=== PATIENT | male | born 1970 ===

== ENCOUNTER 2018-03-08 09:23 | Emergency (ER) | payer OTHER ==
--- OUTSIDE RECORDS SUMMARY | 2018-03-08 09:30 | XMS REPORT ---
:1970 External Reference #:[id number] Author Organization [employer] Address [address] [place] [address] Phone [phone] Care Team Providers Name Role Phone Cristi Kyle M.D. Primary Care Physician Unavailable Payers Type Date Identification Numbers Payment Provider Subscriber Commercial Policy Number: [id number] [employer] Ppo/Pos/Epo/Nap Gayla Romano PayID: [id number] [address] [place] [address] Problems Date Description Provider Status Onset: 01/17/2018 Myopia Raine Rizo O.D. Active Onset: 01/17/2018 Presbyopia Raine Rizo O.D. Active Onset: 01/17/2018 Regular astigmatism Raine Rizo O.D. Active Family History Date Family Member(s) Problem(s) Comments Father No Current Problems Mother No Current Problems Social History Type Date Description Comments Marital Status Legal Status: Occupation [employer] Work Status Full-Time Employment ETOH Use Denies alcohol use Smoking Patient has never smoked Daily Caffeine Does Not Consume Caffeine Allergies, Adverse Reactions, Alerts Date Description Reaction Status Severity Comments 01/17/2018 NKDA active Medications Medication Date Status Form Strength Qnty SIG Indications Ordering Provider No Active 01/17/2018 Active Unknown Medications Results Description No Information Procedures Date CPT Code Description Status 01/17/2018 23148 Determination Of Refractive State Completed 01/17/2018 84160 New Patient Comprehensive Exam Completed Plan of Care 01/17/2018 - Raine Rizo O.D.H52.13 Myopia, bilateralComments:Smoking can increase the risk of developing or worsening any eye related disease, as well as affect your overall health. If you are a smoker, we strongly recommend that you quit.If you are not a smoker, we strongly recommend that you do not start. You have Myopia, or near sightedness. I have given you a prescription for glasses.Follow up:2 Year Follow Up You can expect to have your eyes dilated at your next visit. If Dr. Rizo orders any additional testing, it may require extra time. We recommend that you bring sunglasses, as dilation drops often make you light sensitive until they wear off. We always recommend you bring someone to drive you home if you are uncomfortable driving with your eyes dilated. If you have any questions before your next visit, feel free to call our office at .H52.223 Regular astigmatism, bilateralComments: Astigmatism is a common vision condition that happens when a person's cornea is not symmetrical. Dr. Rizo has given you a prescription to correct for this.H52.4 PresbyopiaComments:You have presbyopia. This is when the lens in your eye loses the ability to change focus, and happens as we age. A pair of reading glasses will help you see up close.
--- NOTE | 2018-03-08 09:39 | UC ---
Ear Complaint HPI - HPI Summary HPI Summary: [facility] Aguilar Holder MD. Pt is 47 y/o M who presents to [facility] c/o right ear pain for last 5 days. Rates his pain severity as 3/10 and describes the pain as an ache. He has taken a couple of showers where water went inside his ear and he believes that is how his ear got infected. - History of Current Complaint Stated Complaint: R EAR COMPLAINT Time Seen by Provider: 03/08/18 09:26 Hx Obtained From: Patient Onset/Duration: Lasting Days - 5 days, Still Present Severity Currently: Mild Pain Intensity: 3 Pain Scale Used: 0-10 Numeric Associated Signs/Symptoms: Positive: Discharge, Swelling @ - ear canal - Allergies/Home Medications Allergies/Adverse Reactions: Allergies Allergy/AdvReac Type Severity Reaction Status Date / Time No Known Allergies Allergy Verified 03/08/18 09:40 PMH/Surg Hx/FS Hx/Imm Hx Endocrine History: Diabetes - NEGATIVE Cardiovascular History: Hypertension - NEGATIVE - Family History Known Family History: Positive: Hypertension - NEGATIVE, Diabetes - NEGATIVE - Social History Alcohol Use: Occasionally Substance Use Type: None Smoking Status (MU): Never Smoked Tobacco Have You Smoked in the Last Year: No Review of Systems Constitutional: Fever - NEGATIVE ENT: Ear Ache All Other Systems Reviewed And Are Negative: Yes Physical Exam - Summary Physical Exam Summary: VITAL SIGNS: Reviewed. GENERAL: Patient is a well-developed and nourished (MALE OR FEMALE) who is lying comfortable in the stretcher. Patient is not in any acute respiratory distress. HEAD AND FACE: Normocephalic EYES: PERRLA, EOMI x 2. EARS: Ear canal swollen with white discharge and tenderness at palpation. Otitis Externa. Hearing grossly intact. MOUTH: Oropharynx within normal limits. NECK: Supple, trachea is midline, no adenopathy, no JVD, no carotid bruit. CHEST: Symmetric, no tenderness at palpation LUNGS: Clear to auscultation bilaterally. No wheezing or crackles. CVS: Regular rate and rhythm, S1 and S2 present, no murmurs or gallops appreciated. ABDOMEN: Soft, non-tender. Bowel sounds are normal. No abdominal abnormal pulsations. EXTREMITIES: Full ROM in all major joints, no edema, no cyanosis or clubbing. NEURO: Alert and oriented x 3. No acute neurological deficits. Speech is normal and follows commands. SKIN: Dry and warm Triage Information Reviewed: Yes Vital Signs Reviewed: Yes Ear Complaint Course/Dx - Course Course Of Treatment: Patient is a 47-year-old male with chief complaint of right ear pain. Physical exam shows that the patient has an otitis externa. Patient was given a prescription for ofloxacin. Patient was recommended to follow up with the primary care physician in the next 2-3 days. Patient is hemodynamically stable alert and oriented 3. - Differential Dx/Diagnosis Differential Diagnosis/HQI/PQRI: Cellulitis, Cerumen Impaction, Otitis Externa, Otitis Media Provider Diagnoses: Otitis externa Discharge - Sign-Out/Discharge Documenting (check all that apply): Patient Departure - Discharge Plan Condition: Stable Disposition: HOME Prescriptions: Ofloxacin 0.3% OTIC.NIKUNJ* [Floxin 0.3% OTIC.NIKUNJ*] 10 drop .SEE ORDER DAILY #1 btl Patient Education Materials: Otitis Externa (ED) Referrals: [facility] [Outside] No Primary Care Phys,NOPCP [Primary Care Provider] - Additional Instructions: Take medications as instructed and adhere to plan Take Acetaminophen or ibuprofen for pain or fever Increase your fluid intake Return to the or go to the emergency department if symptoms worsen Follow-up with primary care physician in next 2-3 days - Billing Disposition and Condition Condition: STABLE Disposition: Home
[2018-03-08 09:46] VITALS: BP 116/84
== END 2018-03-08 09:45 | disposition home or self-care (01) ==
LOC: UCEAST 09:23
DX: H60.91 Unspecified otitis externa, right ear (principal)
CPT/HCPCS: 99202; G0463

== ENCOUNTER 2019-01-12 18:49 | Emergency (ER) | payer OTHER ==
[2019-01-12 19:20] VITALS: BP 144/65
--- NOTE | 2019-01-12 19:44 | UC ---
Skin Complaint HPI - HPI Summary HPI Summary: Patient is 48year old , who present today to the urgent care with puncture wound to the left little toe with the toothpick at around 4 PM today. He was able to completely pull out the to take and wants a tetanus shot as his last tetanus was in 2002. No bleeding. - History of Current Complaint Chief Complaint: UCSkin Time Seen by Provider: 01/12/19 19:33 Stated Complaint: TOE INJURY Hx Obtained From: Patient Pain Intensity: 3 - Allergy/Home Medications Allergies/Adverse Reactions: Allergies Allergy/AdvReac Type Severity Reaction Status Date / Time No Known Allergies Allergy Verified 01/12/19 19:21 PMH/Surg Hx/FS Hx/Imm Hx - Additional Past Medical History Additional PMH: Past Medical History : None Past Surgical History: No Past History of Procedure Family History : Noncontributory Social History : Occasional alcohol, non smoker, no drug use. He is a research associate at [employer] Previously Healthy: Yes - Surgical History Surgical History: None - Family History Known Family History: Positive: Hypertension - NEGATIVE, Diabetes - NEGATIVE - Social History Alcohol Use: Occasionally Substance Use Type: None Smoking Status (MU): Never Smoked Tobacco Have You Smoked in the Last Year: No Review of Systems All Other Systems Reviewed And Are Negative: Yes Constitutional: Positive: Negative Skin: Positive: Other - Puncture wound to the left little toe Eyes: Positive: Negative ENT: Positive: Negative Respiratory: Positive: Negative Cardiovascular: Positive: Negative Gastrointestinal: Positive: Negative Genitourinary: Positive: Negative Motor: Positive: Negative Neurovascular: Positive: Negative Musculoskeletal: Positive: Negative Neurological: Positive: Negative Psychological: Positive: Negative Is Patient Immunocompromised?: No Physical Exam - Summary Physical Exam Summary: Physical Exam: Const: Appears well. No signs of apparent distress present. Alert and oriented x 3. Musculo: Walks with a normal gait. Head/Face: Atraumatic, normocephalic on inspection. Eyes: EOMI and PERRLA in both eyes. Conjunctivae clear. No discharge noted ENT: Hearing normal Respiratory: Respirations are unlabored. Lungs clear to auscultation bilaterally, no wheezing , rhonchi or rales noted . CVS: Regular rate and Rhythm, S1S2 normal , no murmurs identified. Extremities: Peripheral circulation is grossly normal. Pulses 2+ Abdomen : Soft non tender , nondistended , Bowel sounds present . No guarding , rebound tenderness or rigidity noted. Skin: Small puncture wound noted at the left little toe on the plantar aspect . No swelling or active bleeding noted. Neuro: Cranial nerves II to XII intact, motor and sensory intact. DTR Intact bilaterally. Mood is normal. Affect is normal. Triage Information Reviewed: Yes Vital Signs: Initial Vital Signs Temp 99 F 01/12/19 19:17 Pulse 63 01/12/19 19:17 Resp 16 01/12/19 19:17 BP 144/65 01/12/19 19:17 Pulse Ox 98 01/12/19 19:17 Vital Signs Reviewed: Yes Course/Dx - Course Course Of Treatment: During the visit today, wound was cleaned with sterile saline and Hibaclens. No foreign body identified. And as per patient, the toothpick was completely taken out. We discussed about getting an x-ray to rule out any foreign body but he declined it and confirmed that he completely took out the toothpick. He was given 1 tetanus shot and 1 dose of keflex. I will prescribe a short course of prophylactic antibiotic to the pharmacy We discussed the findings and further plan. Patient expressed understanding . - Diagnoses Provider Diagnosis: Puncture wound Discharge - Sign-Out/Discharge Documenting (check all that apply): Patient Departure All imaging exams completed and their final reports reviewed: No Studies - Discharge Plan Condition: Stable Disposition: HOME Patient Education Materials: Puncture Wound (ED) Referrals: No Primary Care Phys,NOPCP [Primary Care Provider] - Additional Instructions: Please start taking the medication as prescribed to the pharmacy . Follow up with your primary care doctor in 1 week Patients blood pressure slightly high in Urgent care today , plan follow up with PCP for better control Return to Urgent care / ER if symptoms get worse. - Billing Disposition and Condition Condition: STABLE Disposition: Home
[2019-01-12] MEDS ORDERED: Cephalexin CAP* 500 MG PO ONE (19:45)
[2019-01-12] MEDS ORDERED: Tetan/Diph/Pertus SYR(Tdap)* 0.5 ML SYR(BOOSTRIX) use SYR IM ONE (19:45)
== END 2019-01-12 20:08 | disposition home or self-care (01) ==
LOC: UCEAST 18:49
DX: S91.135A Puncture wound without foreign body of left lesser toe(s) without damage to nail, initial encounter (principal); W22.8XXA Striking against or struck by other objects, initial encounter; Y92.9 Unspecified place or not applicable
CPT/HCPCS: 90471; 90715; 99212; A9270-GY; G0463